=== PATIENT | female | born 1960 | race Caucasian/White ===

== ENCOUNTER 2021-02-21 11:59 | Inpatient (IN) | payer OTHER ==
[2021-02-21 12:41] VITALS: BMI 29.7
[2021-02-21] MEDS ORDERED: METHOCARBAMOL 500 MG TABLET PO PRN (13:53)
[2021-02-21] MEDS ORDERED: MENTHOL/PHENOL 1 EACH UD MM PRN (13:53)
[2021-02-21] MEDS ORDERED: LORazepam 1 MG TABLET PO PRN (13:53)
[2021-02-21] MEDS ORDERED: MAG HYDROX/AL HYDROX/SIMETH 30 ML UNIT-DOSE CUP PO PRN (13:53)
[2021-02-21] MEDS ORDERED: ACETAMINOPHEN 325 MG TABLET (FP) PO PRN ×2 (13:53)
[2021-02-21] MEDS ORDERED: MAGNESIUM HYDROX 2400MG/30ML ORAL SUSPENSION 30 ML CUP PO PRN (13:53)
[2021-02-21] MEDS ORDERED: ONDANSETRON *ODT* 4 MG TABLET SL PRN (13:53)
[2021-02-21] MEDS ORDERED: IBUPROFEN 400 MG TABLET (FP) PO PRN (13:53)
[2021-02-21] MEDS ORDERED: MAGNESIUM CITRATE 300 ML BOTTLE PO PRN (13:53)
[2021-02-21] MEDS ORDERED: BISMUTH SUBSALICYLATE 524 MG/30 ML PO PRN (13:53)
[2021-02-21] MEDS: hydrOXYzine PAMOATE 25 MG CAPSULE (FP) PO SCH ×3 (15:08→22:10)
[2021-02-21] MEDS: PRENATAL VITAMINS W/ FOLIC ACID TABLET (FP) PO SCH (15:08)
[2021-02-21 17:30] LABS: HEMOGLOBIN 11.2 GM/dL (10.7-15.3); MCH 28.6 pg (25.7-33.7); MCHC 32.9 g/dl (32.0-36.0); MEAN PLT VOLUME 8.2 fl (7.5-11.1); PLATELET COUNT 290 10^3/uL (134-434); RBC 3.91 M/mm3 (3.60-5.2); WHITE BLOOD COUNT 7.1 K/mm3 (4.0-10.0)
[2021-02-21 17:34] LABS: CALCIUM 8.9 mg/dL (8.5-10.1)
[2021-02-21 17:35] LABS: ALBUMIN 3.8 g/dl (3.4-5.0); BLOOD UREA NITROGEN 11.6 mg/dL (7-18)
[2021-02-21] MEDS: LORazepam 2 MG TABLET PO SCH ×2 (17:36→22:09)
[2021-02-21 17:38] LABS: CREATININE 0.7 mg/dL (0.55-1.3)
[2021-02-21 17:39] LABS: BILIRUBIN,TOTAL 0.3 mg/dL (0.2-1); TOT PROT 8.1 g/dl (6.4-8.2)
[2021-02-21 18:25] LABS: HIV INTERPRETATION NEGATIVE (NEGATIVE)
[2021-02-21] MEDS: THIAMINE HCL 100 MG TABLET (FP) PO SCH (22:10)
[2021-02-21] MEDS: MELATONIN 5 MG TABLETS PO SCH (22:10)
[2021-02-22] MEDS: LORazepam 2 MG TABLET PO SCH ×5 (07:19→22:18)
[2021-02-22] MEDS: hydrOXYzine PAMOATE 25 MG CAPSULE (FP) PO SCH ×6 (07:20→22:17)
[2021-02-22] MEDS ORDERED: cloNIDine HCL 0.1 MG TABLET PO PRN (09:59)
[2021-02-22] MEDS: PRENATAL VITAMINS W/ FOLIC ACID TABLET (FP) PO SCH (10:35)
[2021-02-22] MEDS ORDERED: FLU VACC QS2021-22(6MOS UP)/PF 60 MCG/0.5 ML SYRINGE IM ONE (12:00)
[2021-02-22] MEDS: THIAMINE HCL 100 MG TABLET (FP) PO SCH (22:18)
[2021-02-22] MEDS: MELATONIN 5 MG TABLETS PO SCH (22:18)
[2021-02-23] MEDS: LORazepam 1 MG TABLET PO SCH ×4 (06:31→22:24)
[2021-02-23] MEDS: hydrOXYzine PAMOATE 25 MG CAPSULE (FP) PO SCH ×2 (06:31→10:13)
[2021-02-23] MEDS: PRENATAL VITAMINS W/ FOLIC ACID TABLET (FP) PO SCH (10:13)
[2021-02-23] MEDS: THIAMINE HCL 100 MG TABLET (FP) PO SCH (22:23)
[2021-02-23] MEDS: MELATONIN 5 MG TABLETS PO SCH (22:23)
[2021-02-23] MEDS: hydrOXYzine PAMOATE 25 MG CAPSULE (FP) PO PRN (22:25)
[2021-02-24] MEDS ORDERED: LORazepam 0.5 MG TABLET PO PRN
[2021-02-24] MEDS: LORazepam 0.5 MG TABLET PO SCH ×4 (06:32→22:22)
[2021-02-24] MEDS: hydrOXYzine PAMOATE 25 MG CAPSULE (FP) PO PRN ×2 (06:34→22:25)
[2021-02-24] MEDS: PRENATAL VITAMINS W/ FOLIC ACID TABLET (FP) PO SCH (10:19)
[2021-02-24] MEDS: MELATONIN 5 MG TABLETS PO SCH (22:23)
[2021-02-24] MEDS: THIAMINE HCL 100 MG TABLET (FP) PO SCH (22:23)
[2021-02-25] MEDS ORDERED: LORazepam 0.5 MG TABLET PO ONE (05:00)
[2021-02-25 09:31] VITALS: BP 126/73; PULSE 64; TEMP 96.3
== END 2021-02-25 09:18 | disposition home or self-care (01) | DRG 775 ==
LOC: YASAS 11:59 → Y3N 14:02
PROVIDERS: ADMIT Allergy & Immunology; ATTEND Allergy & Immunology
PROC: HZ2ZZZZ Detoxification Services for Substance Abuse Treatment (ICD-10-PCS; principal; 2021-02-21)
DX: F10.230 Alcohol dependence with withdrawal, uncomplicated (principal); F10.280 Alcohol dependence with alcohol-induced anxiety disorder; F10.282 Alcohol dependence with alcohol-induced sleep disorder; F41.9 Anxiety disorder, unspecified; Z86.2 Personal history of diseases of the blood and blood-forming organs and certain disorders involving the immune mechanism; Z98.84 Bariatric surgery status; Z98.890 Other specified postprocedural states
CPT/HCPCS: 36415; 70450-TC; 80053; 85027; 86780; 87389; 90471; 90686; 90715; 99284-25; C9803; G0008; J0735; U0003; U0005